=== PATIENT | female | born 1960 | race Caucasian/White ===

== ENCOUNTER 2022-10-03 14:07 | Outpatient (CLI) | payer OTHER ==
--- NOTE | 2022-10-03 14:55 | SLEEP CARE CONSULTATION ---
Information from patient questionnaire entered by America Moreno. I have reviewed and concur with the information entered by America Moreno. This document represents the service I personally performed and the decisions made by me, Dary Young ARNP. History of Present Illness Service Date and Time: 10/03/2022 1407 Reason for Visit: New patient, Previously diagnosed sleep apnea, sleep apnea on CPAP therapy Chief Complaint: reports: Insomnia, Snoring, Fatigue, Other (UPDATE SUPPLIES) Date of Onset: YRS Usual bedtime: 11PM Time it takes to fall asleep: 30IN Snores at night: Yes Sleeps alone due to snoring: No Number of times waking at night: 2 Reasons for waking at night: reports: Bathroom, Other (DONE SLEEPING) Toss, Turn, or Twitch while sleeping: Yes Recalls having dreams: No Usually gets out of bed at: 3-4AM Feels refreshed in the morning: Yes Morning headache: No Sleepy or fatigued during the day: Yes Ever fallen asleep while driving: No Takes day naps: Yes Dreams during day naps: Yes Prior sleep studies: Yes Additional HPI information: HEAVEN WHATLEY was previously diagnosed to have unknown, AHI unknown, sleep apnea-hypopnea syndrome and comes in today to establish care for BIPAP therapy. - Parasomnia Symptoms Ever been unable to move upon waking from sleep: No Walks in sleep: No Talks in sleep: No Ever acted out dreams in sleep: No Ever felt weak in the knees when startled or emotional: No Bothered by creepy, crawly, restless sensations in legs: No Problems with memory or concentration: No CPAP Compliance Data - Data Reviewed with Patient Average duration of nightly device use: 4 hours 28 minutes Compliance rate %: 46.7 ( days used) Current pressure setting (cmH2O): 15/5 Average residual AHI: 17.5 Central apnea: 6.8 Obstructive apnea: 1.5 Hypopnea: 9.2 Average large leak: 39 Compliance data discussion: She has a Dreamstation Auto Bipap that was re-certified. She has been getting supplies from [employer]. She is using a nasal pillows mask, extra small cushion. Subjective Missed days of use due to: reports: illness (hospitalized) Patient concerns: reports: aerophagia (not every morning). denies: mask discomfort, air blowing in eyes, mask leak noise, condensation in mask/hose, nasal congestion, dry mouth, nose, throat, epistaxis Observed to snore while using device: No Current pressure setting perceived as: comfortable On therapy, patient: reports: sleeping better, awakening more refreshed, being more awake and alert during the day, more rested overall. denies: drowsiness while driving Initial [place] Sleepiness Scale score: 6 (10/03/22) Past Medical History Past Medical History: reports: Claustrophobia, Congestive Heart Failure, Arthritis, Coronary Heart Disease, Anemia, Anxiety, Other (pacemaker in situ) Social History The patient's occupation is a RE. Patient is and lives in [place]. Have you smoked in the past 12 months: No Alcohol use: Yes Alcohol amount and frequency: 1-2 TWICE A YR Caffeine use: Yes Caffeine amount and frequency: 1-2 COUPLE TIMES A MONTH Family History Family history of sleep disordered breathing: Yes Family Hx Sleep Apnea: Mother: Snoring, Father: Snoring, Sleep apnea - Untreated Allergies and Home Medications Known drug allergies: Yes ([facility]) Drug allergies reviewed: Yes Home medication list reviewed: Yes (see updated list in EMR) Review of Systems Weight loss over past 5 years: 51 Cardiovascular: reports: high blood pressure, leg or foot swelling Gastrointestinal: denies: heartburn Neurological: denies: headaches Psychiatric: reports: anxiety, claustrophobia Ear/Nose/Throat: reports: sinus problems, tonsillectomy, wisdom teeth removed Endocrine: reports: 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 Obstructive Sleep Apnea-Hypopnea Syndrome, unknown, with good treatment compliance and fair apnea control with elevated residual AHI. We have requested a copy of her last sleep study but have not yet received it. Once I receive her sleep study to verify diagnosis, I can update her prescription with her DME supplier. On BIPAP therapy, the patient has better sleep quality and is more rested overall. Patient is here to establish care of her BiPAP. Her residual AHI is elevated at 17.5. She states she has been through a titration study in the past, about 2 years ago and the tech was so rude to her that she really does not want to do another study. The patients pressure will be changed to BIPAP 17/8 cmH20 for elevation of residual AHI. Patient advised to contact me if pressure change is uncomfortable so that it can be adjusted. Goals for apnea control discussed. I will follow up with Maria Isabel in about 1-2 months to check control of sleep apnea. Patient's apnea severity and rationale for treatment to reduce apnea, improve sleep quality and reduce cardiovascular and cerebrovascular events was reviewed. I also reviewed the benefit of consistent device use of BIPAP for cardiac disease, anxiety. 2. Obesity, unspecified. Currently patients BMI is 33.4. Obesity increases the risk of apnea, BIPAP pressure requirements and overall health risks especially cardiovascular and diabetes. Thus patient is advised to lose weight. * Obtain copy of last sleep study * Change BIPAP pressure to 17/8 cmH2O * Update supplies after gets copy of sleep study * Notify me if snoring with mask or feeling that the pressure is too much or too little * Attempt to lose weight * Call this office if any problems using BIPAP * Return for follow up in 1-2 months, or sooner if concerns arise Counseling Topics: Spare mask, Weight loss health impact Visit Type: In Office Time Spent with Patient (minutes): 33 Provider Statement: I spent 100% of the Face to Face Visit with the patient with greater than 50% spent counseling the patient and coordination of care.
[2022-10-03 14:56] VITALS: BP 126/64
== END 2022-10-03 14:08 | disposition home or self-care (01) ==
LOC: SC 14:07
PROVIDERS: ATTEND Nurse Practitioner Family
DX: G47.33 Obstructive sleep apnea (adult) (pediatric) (principal); E66.9 Obesity, unspecified; Z68.33 Body mass index [BMI] 33.0-33.9, adult
CPT/HCPCS: 99203; 99212

== ENCOUNTER 2022-11-11 13:59 | Outpatient (CLI) | payer OTHER ==
--- NOTE | 2022-11-11 14:49 | Sleep Patient Instructions ---
Sleep Center Visit Summary - Patient Visit Information Reason for Visit: 3 month followup of BiPAP therapy - Patient Instructions Additional Instructions: You were here for follow up of BIPAP therapy. You will be continued on BiPAP therapy with pressure at 19/10 cmH2O. Please let us know if the pressure change is uncomfortable and we can make further adjustments of the pressure. You should follow up with sleep care in 1-2 months. You may contact us sooner for any questions or concerns. - Clinic Information Contact: [facility] [address] [place] [address] [email or web address] T: [phone]
[2022-11-11 14:51] VITALS: BP 100/60
--- NOTE | 2022-11-11 14:51 | SLEEP CARE CONSULTATION ---
Information from patient questionnaire entered by America Moreno. I have reviewed and concur with the information entered by America Moreno. This document represents the service I personally performed and the decisions made by me, Dary Young ARNP. History of Present Illness Service Date and Time: 11/11/2022 1359 Previous diagnosis: Obstructive Sleep Apnea-Hypopnea Syndrome (Unknown severity) Reason for follow up: one month (F/U) Equipment type: CPAP ([employer] Dreamstation BIPAP; s/u 06/2019 SD CARD NEEDED) Equipment obtained from: Other (Unsure of name, getting some supplies) Mask style: Nasal pillows Backup mask available: No (will keep old mask when replaced) Last cushion change: 6 weeks Prior sleep studies: Yes HPI additional information: HEAVEN WHATLEY was diagnosed to have unknown, AHI unknown, obstructive sleep apnea-hypopnea syndrome and returned today for BIPAP therapy one month follow- up. Sleep Study - Results Prior sleep studies: Yes CPAP Compliance Data - Data Reviewed with Patient Average duration of nightly device use: 4 hours 11 minutes Compliance rate %: 66.7 (30/30 days used) Current pressure setting (cmH2O): 17/8 Average residual AHI: 14.2 Average large leak: 5 mins 54 secs Subjective Patient concerns: denies: aerophagia, mask discomfort, air blowing in eyes, mask leak noise, condensation in mask/hose, nasal congestion, dry mouth, nose, throat, epistaxis Observed to snore while using device: No Current pressure setting perceived as: comfortable On therapy, patient: reports: sleeping better (sleeping longer), awakening more refreshed, being more awake and alert during the day, more rested overall. denies: drowsiness while driving Initial [place] Sleepiness Scale score: 6 (10/03/22) Current [place] Sleepiness Scale score: 8 (11/11/22) Allergies and Home Medications Known drug allergies: Yes (penicillin) Drug allergies reviewed: Yes Home medication list reviewed: Yes Allergy and home medication list: Allergies Penicillins Allergy (Verified 11/10/22 10:23) New Medications: Jardiance Review of Systems Review of systems same as previous: Yes (no changes) Physical Exam Vital signs obtained and entered by: AMERICA Luque MA Blood Pressure: 100/60 (LEFT ARM) Cuff size: regular Heart Rate: 74 O2 Saturation: 97 Height: 5 ft 6 in Weight: 212 lb Body Mass Index: 34.2 BMI Classification: Obese Impression and Plan 1. Obstructive Sleep Apnea-Hypopnea Syndrome, unknown, with good treatment compliance and good apnea control. On BIPAP therapy, the patient has better sleep quality and is more rested overall. The patients pressure will be changed to autoCPAP 19/10 cmH20 for elevation of residual AHI. Patient advised to contact me if pressure change is uncomfortable so that it can be adjusted. Goals for apnea control discussed. Patient's apnea severity and rationale for tr eatment to reduce apnea, improve sleep quality and reduce cardiovascular and cerebrovascular events was reviewed. I also reviewed the benefit of consistent device use of BIPAP for cardiac disease and anxiety. 2. Obesity, unspecified. Currently patients BMI is 34.2. Obesity increases the risk of apnea, BIPAP pressure requirements and overall health risks especially cardiovascular and diabetes. Thus patient is advised to lose weight. * Change BIPAP pressure to 19/10 cmH2O * Notify me if snoring with mask or feeling that the pressure is too much or too little * Attempt to lose weight * Call this office if any problems using BIPAP * Return for follow up in 1-2 months, or sooner if concerns arise Counseling Topics: Spare mask, Weight loss health impact Visit Type: In Office Time Spent with Patient (minutes): 20 Provider Statement: I spent 100% of the Face to Face Visit with the patient with greater than 50% spent counseling the patient and coordination of care.
== END 2022-11-11 14:00 | disposition home or self-care (01) ==
LOC: SC 13:59
PROVIDERS: ATTEND Nurse Practitioner Family
DX: G47.33 Obstructive sleep apnea (adult) (pediatric) (principal); E66.9 Obesity, unspecified; Z68.34 Body mass index [BMI] 34.0-34.9, adult
CPT/HCPCS: 99212; 99213

== ENCOUNTER 2023-01-13 13:39 | Outpatient (CLI) | payer OTHER ==
--- NOTE | 2023-01-13 15:05 | Sleep Patient Instructions ---
Sleep Center Visit Summary - Patient Visit Information Reason for Visit: Two month followup for PAP therapy - Patient Instructions Additional Instructions: You were here for follow up of BIPAP therapy. You will be continued on BiPAP therapy with pressure at 21/10 cmH2O. Please let us know if the pressure change is uncomfortable and we can make further adjustments of the pressure. You should follow up with sleep care in 1-2 months. You may contact us sooner for any questions or concerns. - Clinic Information Contact: [facility] [address] [place] [address] [email or web address] T: [phone]
--- NOTE | 2023-01-13 15:08 | SLEEP CARE CONSULTATION ---
Information from patient questionnaire entered by America Moreno. I have reviewed and concur with the information entered by America Moreno. This document represents the service I personally performed and the decisions made by me, Dary Young ARNP. History of Present Illness Service Date and Time: 01/13/2023 1339 Previous diagnosis: Very Severe, Obstructive Sleep Apnea-Hypopnea Syndrome AHI: 64.9 (in 2012) Reason for follow up: other (2 MONTH F/U) Equipment type: BiPAP ([employer] Wireless Internetstation BIPAP; s/u 06/2019 SD CARD NEEDED) Equipment obtained from: Other ([employer], getting some supplies) Mask style: Nasal pillows Backup mask available: Yes (old mask) Last cushion change: couple months Prior sleep studies: Yes HPI additional information: HEAVEN WHATLEY was diagnosed to have very severe, AHI 64.9, obstructive sleep apnea-hypopnea syndrome and returned today for BIPAP therapy two month follow- up. Sleep Study - Results Prior sleep studies: Yes CPAP Compliance Data - Data Reviewed with Patient Average duration of nightly device use: 4 hours 16 minutes Compliance rate %: 71.7 (60/60 days used) Current pressure setting (cmH2O): 19/10 Average residual AHI: 15 Central apnea: 3.9 Obstructive apnea: 2.1 Hypopnea: 9 Average large leak: 46 minutes Subjective Patient concerns: denies: aerophagia, mask discomfort, air blowing in eyes, mask leak noise, condensation in mask/hose, nasal congestion, dry mouth, nose, throat, epistaxis Observed to snore while using device: No Current pressure setting perceived as: comfortable On therapy, patient: reports: sleeping better, awakening more refreshed, being more awake and alert during the day, more rested overall. denies: drowsiness while driving (not driving now due to knees) Initial [place] Sleepiness Scale score: 6 (10/03/22) Current [place] Sleepiness Scale score: 12 (01/13/23) Allergies and Home Medications Known drug allergies: Yes (penicillins) Drug allergies reviewed: Yes Home medication list reviewed: Yes (no changes) Allergy and home medication list: Allergies Penicillins Allergy (Verified 01/12/23 11:44) Review of Systems Review of systems same as previous: Yes (no changes; surgery for right knee on Jan) Physical Exam Vital signs obtained and entered by: AMERICA Luque MA Blood Pressure: 128/74 (LEFT ARM) Cuff size: regular Heart Rate: 72 O2 Saturation: 97 Height: 5 ft 6 in Weight: 204 lb Body Mass Index: 32.9 BMI Classification: Obese Impression and Plan 1. Obstructive Sleep Apnea-Hypopnea Syndrome, very severe, with good treatment compliance and fair apnea control with elevated residual AHI. On BIPAP therapy, the patient has better sleep quality and is more rested overall. The patients pressure will be changed to autoCPAP 21/10 cmH20 for elevation of residual AHI. Patient advised to contact me if pressure change is uncomfortable so that it can be adjusted. Goals for apnea control discussed. I asked if she would do a titration study and she declined stating she is getting surgery on her knees, one on 26 of January and the next in April. I will have her come back in about 2 months, between surgeries, to recheck her apnea control. Patient's apnea severity and rationale for treatment to reduce apnea, improve sleep quality and reduce cardiovascular and cerebrovascular events was reviewed. I also reviewed the benefit of consistent device use of BIPAP for cardiac disease and anxiety. 2. Obesity, unspecified. Currently patients BMI is 32.9. Obesity increases the risk of apnea, BIPAP pressure requirements and overall health risks especially cardiovascular and diabetes. Thus patient is advised to lose weight. * Change BIPAP pressure to 21/10 cmH2O * Notify me if snoring with mask or feeling that the pressure is too much or too little * Attempt to lose weight * Call this office if any problems using BIPAP * Return for follow up in 1-2 months, or sooner if concerns arise Counseling Topics: Spare mask, Weight loss health impact Visit Type: In Office Time Spent with Patient (minutes): 20 Provider Statement: I spent 100% of the Face to Face Visit with the patient with greater than 50% spent counseling the patient and coordination of care.
[2023-01-13 15:10] VITALS: BP 128/74; O2SAT 97
== END 2023-01-13 13:40 | disposition home or self-care (01) ==
LOC: SC 13:39
PROVIDERS: ATTEND Nurse Practitioner Family
DX: G47.33 Obstructive sleep apnea (adult) (pediatric) (principal); E66.9 Obesity, unspecified; Z68.32 Body mass index [BMI] 32.0-32.9, adult
CPT/HCPCS: 99212; 99213